=== PATIENT | female | born 1970 | race Two or more races ===

== ENCOUNTER 2023-02-26 05:25 | Emergency (ER) | payer MEDICAID ==
[~2023-02-26] VITALS: Ht 167.6 cm; Wt 81.6 kg
[2023-02-26 07:01] LABS: BASOPHILS % (AUTO) 0.4 % (0.0-2.0); EOSINOPHILS # (AUTO) 0.1 K/uL (0.0-0.7); EOSINOPHILS % (AUTO) 2.5 % (0.0-7.0); HEMATOCRIT 38.5 % (31.2-41.9); LYMPHOCYTES # (AUTO) 1.6 K/uL (0.8-4.8); LYMPHOCYTES % (AUTO) 34.8 % (20.5-51.5); MEAN CORPUSCULAR HEMOGLOBIN 30.2 uug (24.7-32.8); MEAN CORPUSCULAR HGB CONC 34 g/dL (32.3-35.6); MEAN CORPUSCULAR VOLUME 89.5 fL (75.5-95.3); MONOCYTES # (AUTO) 0.3 K/uL (0.1-1.30); MONOCYTES % (AUTO) 7.3 % (0.0-11.0); NEUTROPHILS # (AUTO) 2.6 K/uL (1.8-8.9); PLATELET COUNT (AUTO) 304 K/uL (179-408); RED CELL DISTRIBUTION WIDTH 12.4 % (12.3-17.7); WHITE BLOOD COUNT (AUTO) 4.7 K/uL (3.8-11.8)
[2023-02-26 07:02] LABS: *BILIRUBIN,URIN NEGATIVE (NEGATIVE); *CLARITY,URINE CLEAR (CLEAR); *COLOR,URINE YELLOW (YELLOW); *KETONES,URINE NEGATIVE (NEGATIVE); *PROTEIN,URINE NEGATIVE (NEGATIVE); *UROBILINOGEN,URINE 0.2 E.U./dl (NORMAL); LEUKOCYTE ESTERASE ,URINE TRACE (NEGATIVE); NITRITE, URINE POSITIVE (NEGATIVE); UGLUCOSE NEGATIVE (NEGATIVE)
[2023-02-26 07:09] LABS: *BLOOD, URINE TRACE (NEGATIVE)
[2023-02-26 07:13] LABS: DIFFERENTIAL COMMENT 1
[2023-02-26 07:15] LABS: CALCIUM 9.2 mg/dL (8.5-10.1); CREATININE 0.9 mg/dL (0.6-1.3); POTASSIUM 4.4 mmol/L (3.5-5.1)
[2023-02-26 07:22] LABS: ALBUMIN 3.9 g/dL (3.4-5.0); BILIRUBIN,DIRECT 0.1 mg/dL (0.0-0.2); BILIRUBIN,TOTAL 0.2 mg/dL (0.2-1.0); TOTAL PROTEIN, SERUM 7.2 g/dL (6.4-8.2)
[2023-02-26] MEDS ORDERED: CEPH500C2 PO (07:26)
[2023-02-26] MEDS ORDERED: NAPR-1009 PO (07:26)
[2023-02-26 07:32] VITALS: BP 138/78; TEMP 98.2; O2SAT 98
[2023-02-26 08:40] LABS: BACTERIA,URINE MANY /HPF (NONE SEEN); RBC,URINE 0-3 /HPF (0-3); SQUAMOUS EPITHELIAL CELL,UR FEW /HPF (NONE SEEN)
== END 2023-02-26 07:33 | disposition home or self-care (01) ==
LOC: ER 05:30
DX: N39.0 Urinary tract infection, site not specified (principal)
CPT/HCPCS: 36415; 83690; 85025; A4663

== ENCOUNTER 2024-08-24 17:50 | Emergency (ER) | payer MEDICAID ==
[~2024-08-24] VITALS: Ht 167.6 cm; Wt 79.4 kg
[~2024-08-24 17:50] MED LIST: CEPH500C2 PO; CIPR-263 PO; LOPE2TAB25 PO; NAPR-1009 PO
[2024-08-24] MEDS ORDERED: IBUPROFEN 800 MG TABLET ONE (19:29)
[2024-08-24] MEDS: IBUPROFEN 800 MG TABLET PO ONE (19:35)
[2024-08-24] MEDS ORDERED: IBUP-1957 PO (20:43)
[2024-08-24] MEDS ORDERED: HYDR-3972 PO (20:43)
[2024-08-24 20:59] VITALS: BP 136/88; TEMP 98.2; O2SAT 98
== END 2024-08-24 20:59 | disposition home or self-care (01) ==
LOC: ER 17:50
DX: S46.002A Unspecified injury of muscle(s) and tendon(s) of the rotator cuff of left shoulder, initial encounter (principal); R03.0 Elevated blood-pressure reading, without diagnosis of hypertension; M25.512 Pain in left shoulder; F17.210 Nicotine dependence, cigarettes, uncomplicated; X58.XXXA Exposure to other specified factors, initial encounter; Y93.89 Activity, other specified; Y92.89 Other specified places as the place of occurrence of the external cause; Y99.8 Other external cause status
CPT/HCPCS: 73020; 73060; A4606; A4663